=== PATIENT | female | born 1980 | race Caucasian/White ===

== ENCOUNTER 2020-03-21 07:08 | Emergency (ER) | payer OTHER ==
[~2020-03-21] VITALS: Ht 162.6 cm; Wt 104.3 kg
[2020-03-21 07:34] LABS: ABSOLUTE EOSINOPHILS 0.1 thou/uL (0.0-0.7); ABSOLUTE LYMPHOCYTES 2.8 thou/uL (0.8-5.3); ABSOLUTE MONOCYTES 0.5 thou/uL (0.0-1.2); ABSOLUTE NEUTROPHILS 2.8 thou/uL (1.6-8.1); BASOPHILS 0.3 %; EOSINOPHILS 1.1 %; HEMATOCRIT 41.7 % (37.0-47.0); HEMOGLOBIN 14.1 gm/dL (12.0-15.0); LYMPHOCYTES 44.9 %; MCH 28.4 pg (26.0-34.0); MCHC 33.9 g/dL (28.0-37.0); MCV 83.8 fL (80.0-100.0); MONOCYTES 7.5 %; NUCLEATED RBCS 0 /100WBC; PLATELET COUNT* 237 thou/uL (150-400); POLYS 46.2 %; RBC 4.98 mil/uL (4.20-5.00); WBC 6.2 thou/uL (4.0-11.0)
[2020-03-21 07:44] LABS: APTT 24.8 Seconds (25.0-31.3); PROTIME 10.1 Seconds (9.20-11.50)
[2020-03-21 07:45] LABS: ANION GAP 8 mmol/L (7-16); BUN 14 mg/dL (7-18); CALCIUM 8.1 mg/dL (8.5-10.1); CHLORIDE 104 mmol/L (98-107); CO2 29 mmol/L (21-32); CREATININE 0.9 mg/dL (0.6-1.3); GLUCOSE 95 mg/dL (70-99); POTASSIUM 3.8 mmol/L (3.5-5.1); SODIUM 141 mmol/L (136-145)
[2020-03-21 07:58] LABS: ALBUMIN 3.5 g/dL (3.4-5.0); ALKALINE PHOSPHATASE 59 U/L (46-116); CK-MB MASS < 0.5 ng/mL (<0.5-3.6); LIPASE 122 U/L (73-393); MAGNESIUM 2.1 mg/dL (1.8-2.4); NT-PRO BRAIN NAT PEPTIDE 80 pg/mL (<300); SGOT 42 U/L (15-37); SGPT 35 U/L (30-65); TOTAL BILIRUBIN 0.5 mg/dL (<0.1-1.0); TOTAL PROTEIN 7.2 g/dL (6.4-8.2)
[2020-03-21 09:37] VITALS: BP 102/59
--- NOTE | 2020-03-21 11:08 | EKG ---
[place] [address] ELECTROCARDIOGRAM REPORT Name: EDOUARDCHHAYASARBJIT Noelle Room: [facility]#: [id number] Admission: 03/21/20 Attend Phys: Discharge: 03/21/20 Date of : 82 Date of Service: 03/21/20712 Report #: [id number] THIS REPORT FOR: //name// [facility] [place] ED Test Date: 2020-03-21 Test Time: 07:13:34 Pat Name: SARBJIT NUNN Department: Room: Gender: F Director Regulatory Compliance: : 1980 Requested By: Addi Merrill Order Number: [id number] MD: Quinton Hernandez Measurements Intervals [place] Rate: 80 P: 2 ID: 131 QRS: -34 QRSD: 105 T: 28 QT: 383 QTc: 442 Interpretive Statements Sinus rhythm Left axis deviation Baseline wander in lead(s) II,III,aVF,V3,V5,V6 No previous ECG available for comparison Electronically Signed On 03-21-2020 11:08:34 CDT by Quinton Hernandez [email or web address] <ELECTRONICALLY SIGNED> By: Quinton Hernandez MD, [facility] 03/21/20 1108 2 2 Quinton Hernandez MD, [facility] /EPI
== END 2020-03-21 09:38 | disposition home or self-care (01) ==
LOC: M.ERS 07:08
PROVIDERS: Family Medicine
DX: R10.13 Epigastric pain (principal); Z98.890 Other specified postprocedural states